=== PATIENT | male | born 1950 | race Caucasian/White ===

== ENCOUNTER 2018-09-08 12:50 | Outpatient (CLI) | payer MEDICARE ==
--- NOTE | 2018-09-08 14:55 | RAD ---
TWO VIEW CHEST: History: Dyspnea. Comparison: 02-19-17 FINDINGS: Interstitial prominence appears stable from prior exam. The heart and mediastinum are unremarkable. L ungs are clear. Vascular markings are within normal range. Osseous structures are unremarkable. IMPRESSION: No evidence of acute process. No internal change. POS: H
== END 2018-09-08 12:51 | disposition home or self-care (01) ==
LOC: RAD 12:50
PROVIDERS: ATTEND Internal Medicine
DX: R06.00 Dyspnea, unspecified (principal)
CPT/HCPCS: 71046

== ENCOUNTER 2019-03-03 08:48 | Outpatient (CLI) | payer MEDICARE | END 2019-03-03 08:49 | disposition home or self-care (01) | LOC: CP 08:48 | PROVIDERS: ATTEND Internal Medicine | DX: J84.10 Pulmonary fibrosis, unspecified (principal) | CPT/HCPCS: 94010; 94729 ==